=== PATIENT | male | born 2000 | race Caucasian/White ===

== ENCOUNTER → 2019-10-15 14:20 | Outpatient (CLI) | payer OTHER, SELFPAY ==
[2019-10-15 14:18] VITALS: BMI 24.4
--- NOTE | 2019-10-15 14:20 | RAD_ITS ---
STUDY: X-RAY - RIGHT KNEE REASON FOR EXAM: Male, 19 years old. PAIN, PREVIOUS SURGERY TO REMOVE LOOSE BODIES TECHNIQUE: 4 view(s) of the knee. COMPARISON: 07/13/2016 FINDINGS: Normal visualized distal femur. Normal visualized proximal tibia and fibula. Normal proximal tibiofibular articulation. Normal medial femorotibial compartment. Normal lateral femorotibial compartment. Normal patellofemoral articulation. There is a soft tissue prominence in the suprapatellar region suggesting a small volume joint effusion. The soft tissue structures are unremarkable. RAD/Knee 4 or More Views IMPRESSION: Normal x-ray examination of the knee. Small suprapatellar effusion Electronically Signed: Jeramy Ferrer MD at 16:55 EDT , Service support ,
== END ==
PROVIDERS: Referring Provider Physician Assistant; Visit Provider Physician Assistant
DX: M25.561 Pain in right knee (principal)
CPT/HCPCS: 73564